=== PATIENT | male | born 1985 | race Caucasian/White ===

== ENCOUNTER 2023-06-30 13:00 | Emergency (ER) | payer BC, OTHER ==
[~2023-06-30] VITALS: Ht 182.9 cm; Wt 91.0 kg
[2023-06-30 13:07] VITALS: BP 146/105; PULSE 92; RESP 18; TEMP 98.9; O2SAT 99
[2023-06-30 14:15] LABS: BASOPHILS % 0.8 % (0.0-2.0); EOSINOPHILS % 2.9 % (0.0-5.0); HEMATOCRIT. 38.8 % (42.0-52.0); HEMOGLOBIN. 13.2 g/dL (14.0-18.0); LYMPHOCYTES % 45.4 % (20.0-50.0); MEAN CORPUSCULAR HEMOGLOBIN 28.7 pg (28.0-32.0); MEAN CORPUSCULAR HGB CONC 33.9 g/dL (31.0-37.0); MEAN CORPUSCULAR VOLUME 84.5 fL (80.0-94.0); MEAN PLATELET VOLUME 7.1 fl (7.4-10.4); MONOCYTES % 9.7 % (2.0-8.0); NEUTROPHILS % 41.2 % (40.0-76.0); PLATELET 395 x1000/uL (130-400); RED BLOOD CELL COUNT 4.59 mill/uL (4.7-6.1); RED CELL DISTRIBUTION WIDTH 15.5 % (11.6-14.6); WHITE BLOOD COUNT 6.3 x1000/uL (4.5-11.0)
[2023-06-30 14:33] LABS: CLARITY URINE CLEAR (CLEAR); COLOR URINE YELLOW (YELLOW); GLUCOSE URINE NEGATIVE (NEGATIVE); KETONES URINE NEGATIVE (NEGATIVE); LEUKOCYTE ESTERASE URINE NEGATIVE (NEGATIVE); NITRITE URINE NEGATIVE (NEGATIVE); OCCULT BLOOD URINE NEGATIVE (NEGATIVE); PROTEIN URINE NEGATIVE (NEGATIVE); SPECIFIC GRAVITY URINE 1.003 (1.005-1.030); UROBILINOGEN URINE 0.2 E.U./dL (0.2-1.0)
[2023-06-30 14:34] LABS: ALANINE AMINOTRANSFERASE 35 IU/L (10-49); ALBUMIN 4.8 g/dL (3.2-4.8); ASPARTATE AMINOTRANSFERASE 26 IU/L (<34); BILIRUBIN TOTAL 0.2 mg/dL (0.1-1.0); CARBON DIOXIDE 28 mEq/L (21-32); CHLORIDE 106 mEq/L (98-107); CREATININE 0.7 mg/dL (0.6-1.3); GLUCOSE 98 mg/dL (70-105); POTASSIUM 4.4 mEq/L (3.5-5.1); PROTEIN TOTAL 7.4 g/dL (6.0-8.3); SODIUM 137 mEq/L (136-145); UREA NITROGEN BLOOD 8 mg/dL (9-23)
[2023-06-30 14:37] LABS: TROPONIN I HIGH SENSITIVITY < 4 ng/L (3.0-53)
== END 2023-06-30 15:45 | disposition home or self-care (01) ==
LOC: ER 13:00
DX: R07.89 Other chest pain (principal); R56.9 Unspecified convulsions; K21.9 Gastro-esophageal reflux disease without esophagitis; I10 Essential (primary) hypertension; Z88.0 Allergy status to penicillin
CPT/HCPCS: 36415; 71045; 80053; 81003; 84484; 85025; 93005; 99285

== ENCOUNTER 2023-09-09 22:41 | Emergency (ER) | payer BC, OTHER ==
[~2023-09-09] VITALS: Ht 182.9 cm; Wt 90.7 kg
[2023-09-09 22:52] VITALS: TEMP 98.4
[2023-09-09 23:24] LABS: BASOPHILS % 0.4 % (0.0-2.0); HEMATOCRIT. 39.5 % (42.0-52.0); HEMOGLOBIN. 13.2 g/dL (14.0-18.0); LYMPHOCYTES % 11.8 % (20.0-50.0); MEAN CORPUSCULAR HEMOGLOBIN 28.6 pg (28.0-32.0); MEAN CORPUSCULAR HGB CONC 33.4 g/dL (31.0-37.0); MEAN CORPUSCULAR VOLUME 85.5 fL (80.0-94.0); MEAN PLATELET VOLUME 7.3 fl (7.4-10.4); MONOCYTES % 7.2 % (2.0-8.0); NEUTROPHILS % 80.6 % (40.0-76.0); PLATELET 480 x1000/uL (130-400); RED BLOOD CELL COUNT 4.62 mill/uL (4.7-6.1); RED CELL DISTRIBUTION WIDTH 14.5 % (11.6-14.6); WHITE BLOOD COUNT 18.7 x1000/uL (4.5-11.0)
[2023-09-09 23:32] LABS: CHLORIDE 103 mEq/L (98-107); POTASSIUM 3.9 mEq/L (3.5-5.1); SODIUM 134 mEq/L (136-145)
[2023-09-09 23:33] LABS: CALCIUM 9.4 mg/dL (8.7-10.4); CARBON DIOXIDE 22 mEq/L (21-32)
[2023-09-09 23:38] LABS: CREATININE 0.8 mg/dL (0.6-1.3); GLUCOSE 112 mg/dL (70-105); UREA NITROGEN BLOOD 8 mg/dL (9-23)
[2023-09-10] MEDS: LORAZEPAM 2MG/ML INJ IV NR (00:17)
[2023-09-10] MEDS: LEVETIRACETAM 500MG PREMIX 100 ML IV NR (00:18)
[2023-09-10] MEDS: KETAMINE HCL 50 MG/ML 10ML IM ONE (01:20)
[2023-09-10] MEDS: SODIUM CHLORIDE 0.9% 1,000 ML IV ONE (01:20)
[2023-09-10] MEDS: ONDANSETRON HCL 4MG/2ML INJ IV ONE ×2 (01:54→04:36)
[2023-09-10 02:14] LABS: TROPONIN I HIGH SENSITIVITY 6 ng/L (3.0-53)
[2023-09-10 02:30] VITALS: O2SAT 97
[2023-09-10 03:19] LABS: *AMPHETAMINES SCREEN URINE NEGATIVE (NEGATIVE)
[2023-09-10 03:20] LABS: *BARBITURATES SCREEN URINE NEGATIVE (NEGATIVE); *BENZODIAZEPINES SCREEN URINE NEGATIVE (NEGATIVE); *COCAINE SCREEN URINE PRESUMPTIVE POSITIVE (NEGATIVE); METHADONE URINE SCREEN NEGATIVE (NEGATIVE); OPIATES URINE SCREEN NEGATIVE (NEGATIVE)
[2023-09-10 03:21] LABS: CANNABINOID URINE SCREEN PRESUMPTIVE POSITIVE (NEGATIVE); ECSTASY MDMA SCREEN URINE NEGATIVE (NEGATIVE); PHENCYCLIDINE URINE SCREEN NEGATIVE (NEGATIVE)
[2023-09-10] MEDS: PANTOPRAZOLE SODIUM 40 MG/VIAL IV NR (05:21)
[2023-09-10] MEDS: MAGNESIUM/ALUMINUM HYDROXIDE/SIMETHICONE 30ML UDC PO NR (05:21)
[2023-09-10] MEDS ORDERED: PROT40 MT (06:31)
[2023-09-10] MEDS ORDERED: ONDA4TAB50 MT (06:31)
[2023-09-10] MEDS ORDERED: KEPP500 MT (06:31)
[2023-09-10 06:50] VITALS: BP 165/66; PULSE 80; RESP 14
[2023-09-10 10:04] LABS: ALANINE AMINOTRANSFERASE 20 IU/L (10-49); ASPARTATE AMINOTRANSFERASE 37 IU/L (<34); BILIRUBIN DIRECT 0.2 mg/dL (<=3.0)
[2023-09-10 10:05] LABS: BILIRUBIN TOTAL 0.5 mg/dL (0.1-1.0); PROTEIN TOTAL 7.9 g/dL (6.0-8.3)
== END 2023-09-10 06:55 | disposition home or self-care (01) ==
LOC: ER 22:41
DX: R56.9 Unspecified convulsions (principal); R11.2 Nausea with vomiting, unspecified; F14.10 Cocaine abuse, uncomplicated; K21.9 Gastro-esophageal reflux disease without esophagitis
CPT/HCPCS: 80048; 80320; 82962; 85025; 36415 ×2; 93005; 99285; 80076; 80305; 83690; 84484; 70450; 96365; 96372; 96375; 96376; J1953; J3490; J2060; J2405; C9113; Z7610 ×2; G0480